=== PATIENT | female | born 2000 | race African-American/Black ===

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

== ENCOUNTER 2019-03-31 21:45 | Emergency (ER) | payer SELFPAY | END 2019-03-31 23:14 | disposition home or self-care (01) | LOC: ERS 21:45 | DX: L73.9 Follicular disorder, unspecified (principal); J45.909 Unspecified asthma, uncomplicated | CPT/HCPCS: 99282 ==

== ENCOUNTER 2019-08-15 14:00 | Emergency (ER) | payer SELFPAY | END 2019-08-15 16:00 | disposition home or self-care (01) | LOC: ERS 14:00 | DX: N75.0 Cyst of Bartholin's gland (principal); J45.909 Unspecified asthma, uncomplicated | CPT/HCPCS: 99283 ==

== ENCOUNTER 2019-12-27 18:40 | Emergency (ER) | payer OTHER, SELFPAY ==
[2019-12-27] MEDS ORDERED: Acetaminophen 500 MG TAB ONE (18:57)
[2019-12-27] MEDS ORDERED: Ibuprofen 200 MG TAB ONE (18:57)
[2019-12-28 12:02] LABS: SARS-CoV-2 MS2 Positive; SARS-CoV-2 N Gene Negative; SARS-CoV-2 S Gene Negative; SARS-CoV-2 by NAA Not Detected (NotDetected); SARS-CoV-2 orf1ab Negative
== END 2019-12-27 20:12 | disposition home or self-care (01) ==
LOC: ERS 18:40
DX: J02.9 Acute pharyngitis, unspecified (principal); Z20.828 Contact with and (suspected) exposure to other viral communicable diseases; R59.0 Localized enlarged lymph nodes; J45.909 Unspecified asthma, uncomplicated
CPT/HCPCS: 87081; 87430; 87635; 99283; U0003

== ENCOUNTER 2020-03-08 11:52 | Emergency (ER) | payer OTHER, SELFPAY ==
[2020-03-08] MEDS ORDERED: Mag-Al 1200 mg/1200 mg/30 ML UDCUP ONE (12:03)
[2020-03-08] MEDS ORDERED: Lidocaine Viscous Sol 2% 15 ml UD Cup ONE (12:03)
--- NOTE | 2020-03-08 12:16 | RAD ---
EXAM: CHEST ONE VIEW HISTORY: Epigastric abdominal pain COMPARISON: None. FINDINGS: The cardiac silhouette and pulmonary vasculature are within normal limits. The lungs are clear. Mild right convex curvature thoracic spine is present. IMPRESSION: No acute cardiopulmonary process.
[2020-03-08 12:35] LABS: Bilirubin Negative (Negative); Blood, Urine Negative (Negative); Clarity Clear (Clear); Glucose, Urine (Dipstick) Normal (Negative); Ketone, Urine Negative (Negative); Leukocyte Negative Leu/uL (Negative); Nitrite Negative (Negative); Protein, Urine (Dipstick) Negative (Neg-Trace); Urobilinogen Normal mg/dL (Less than 2)
[2020-03-08 12:36] LABS: Pregnancy Test - Urine (BHCG) Negative (Negative); Pregu Control Background? CLEAR/WHITE (CLR/WHITE); Pregu Control Bar Appear? YES (CONTROL BAR)
== END 2020-03-08 12:58 | disposition home or self-care (01) ==
LOC: ERS 11:52
DX: R10.816 Epigastric abdominal tenderness (principal); J45.909 Unspecified asthma, uncomplicated
CPT/HCPCS: 71045; 81003; 81025; 93005

== ENCOUNTER 2022-01-22 11:01 | Emergency (ER) | payer SELFPAY ==
[2022-01-22 11:27] LABS: #Lymphocytes 1.2 thou/uL (1.20-3.40); #Monocytes 0.3 thou/uL (0.11-0.59); #Neutrophils 5.1 thou/uL (1.40-6.50); %Basophils 0.4 % (0.0-1.0); %Eosinophils 0.2 % (0.0-10.0); %Lymphocytes 18.6 % (21.0-51.0); %Monocytes 4.6 % (0.0-10.0); %Neutrophils 76.3 % (42.0-75.0); Hemoglobin 11.7 g/dL (12.0-16.0); Mean Corpuscular Hemoglobin 22.5 pg (27.0-31.0); Mean Platelet Volume 9.5 fL (7.4-10.4); Platelet Count 372 thou/uL (130-400); RBC Distribution Width 15.2 % (11.5-14.5); White Blood Cell (WBC) Count 6.7 thou/uL (4.8-10.8)
[2022-01-22 11:46] LABS: MDiff Complete? YES; Mean Corpuscular Volume 72.7 fL (78.0-98.0); Microcytosis SLIGHT = 6-15 cells (100X) (0-5/hpf); Platelet Morphology Comment Appears Adequate
[2022-01-22 11:48] LABS: BHCG - Serum Negative (NEGATIVE); Pregs Control Background? CLEAR/WHITE (CLR/WHITE); Pregs Control Bar Appear? YES (CONTROL BAR)
[2022-01-22 11:59] LABS: ALT (SGPT) 12 U/L (8-55); AST (SGOT) 16 U/L (5-34); Albumin 4.4 g/dL (3.5-5.0); Alkaline Phosphatase 83 U/L (40-110); Anion Gap 12 mmol/L (10-20); BUN (Urea Nitrogen) 7 mg/dL (7.0-18.7); Bilirubin, Total 0.3 mg/dL (0.2-1.2); Calc. Creatinine Clearance 0 mL/min (70-130); Calcium 9.4 mg/dL (7.8-10.44); Carbon Dioxide 23 mmol/L (22-29); Chloride 103 mmol/L (98-107); Estimated GFR 129; Globulin 4.2 g/dL (2.4-3.5); Glucose 99 mg/dL (70-105); Lipase 34 U/L (8-78); Potassium 3.8 mmol/L (3.5-5.1); Protein, Total 8.6 g/dL (6.0-8.3); Sodium 134 mmol/L (136-145)
[2022-01-22] MEDS ORDERED: Ondansetron PF 4 MG/2 ML Vial ONE (12:25)
[2022-01-22] MEDS ORDERED: Ketorolac Tromethamine 30 MG/ML VIAL ONE (12:25)
[2022-01-22 12:36] LABS: Bacteria/HPF None Seen HPF (None Seen); Bilirubin Negative (Negative); Blood, Urine Negative (Negative); Clarity Turbid (Clear); Glucose, Urine (Dipstick) Normal (Negative); Ketone, Urine Negative (Negative); Leukocyte 75 Leu/uL (Negative); Nitrite Negative (Negative); Protein, Urine (Dipstick) 10 mg/dL (Neg-Trace); RBC/HPF 0-3 HPF (0-3); Specific Gravity, Urine 1.019 (1.002-1.036); Squamous Epithelial 21-50 HPF (0-3); Urobilinogen Normal mg/dL (Less than 2)
== END 2022-01-22 13:59 | disposition home or self-care (01) ==
LOC: ERS 11:01
DX: K80.20 Calculus of gallbladder without cholecystitis without obstruction (principal)
CPT/HCPCS: 36415; 76705; 80053; 81003; 81015; 83690; 84703; 85025; 96374; 96375; J1885; J2405